=== PATIENT | male | born 1950 | race Caucasian/White ===

== ENCOUNTER 2020-01-15 15:20 | Inpatient (IN) | payer BC, OTHER ==
[~2020-01-15] VITALS: Ht 190.5 cm; Wt 128.8 kg
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
--- NOTE | ~2020-01-15 | EKG ---
[facility] [place] [address] ELECTROCARDIOGRAM REPORT Name: JEWELS ROWELL III Room #: 170-10 ADM IN M.R.#: [id number] Admission: 01/15/20 Attend Phys: Vinny Roche MD, Discharge: Date of : 54 Report #: [id number] THIS REPORT FOR: cc: FAM - No family physician/PCP FAM - No family physician/PCP Dmitri Rizvi MD ~ THIS REPORT FOR: //name// [facility] ED Test Date: 2020-01-15 Test Time: 15:22:19 Pat Name: JEWELS ROWELL Department: Room: 170 Gender: M [place] In: . : 1950 Requested By: Octavio Lindsey Order Number: [id number] MD: Measurements Intervals [place] Rate: 63 P: 44 FL: 187 QRS: -18 QRSD: 105 T: 34 QT: 422 QTc: 433 Interpretive Statements Sinus rhythm Atrial premature complex Borderline left axis deviation Borderline low voltage, extremity leads Abnormal R-wave progression, early transition Compared to ECG 11/06/2006 08:14:38 Atrial premature complex(es) now present Sinus bradycardia no longer present [email or web address] By: 1522 21 [place], [place] /PRINCESS
--- NOTE | ~2020-01-15 | EKG ---
[facility] [place] [address] ELECTROCARDIOGRAM REPORT Name: LELIA,JEWELS Fay III Room #: 215-P DIS IN M.R.#: [id number] Admission: 01/15/20 Attend Phys: Vinny Roche MD, Discharge: 01/16/20 Date of : 54 Report #: [id number] THIS REPORT FOR: cc: BALJEET - No family physician/PCP FAM - No family physician/PCP Dmitri Rizvi MD ~ THIS REPORT FOR: //name// [facility] Test Date: 2020-01-16 Test Time: 06:57:43 Pat Name: JEWELS ROWELL Department: Room: 215 P Gender: M Guest Services Coordinator: Ruby TOWNSEND : 1950 Requested By: Vinny Roche Order Number: [id number] MD: Measurements Intervals [place] Rate: 52 P: [place]: QRS: -10 QRSD: 97 T: 32 QT: 432 QTc: 402 Interpretive Statements Atrial fibrillation Low voltage, extremity and precordial leads Abnormal R-wave progression, early transition Compared to ECG 11/06/2006 08:14:38 Sinus bradycardia no longer present [email or web address] By: 0657 6 [place], [place] /EPI
--- NOTE | ~2020-01-15 | EKG ---
[facility] [place] [address] ELECTROCARDIOGRAM REPORT Name: JEWELS ROWELL III Room #: 215-P ADM IN M.R.#: [id number] Admission: 01/15/20 Attend Phys: Vinny Roche MD, Discharge: Date of : 54 Report #: [id number] THIS REPORT FOR: cc: FAM - No family physician/PCP FAM - No family physician/PCP Dmitri Rizvi MD ~ THIS REPORT FOR: //name// [facility] Test Date: 2020-01-16 Test Time: 06:57:43 Pat Name: JEWELS ROWELL Department: Room: 215 P Gender: M Pit Hand: Ruby TOWNSEND : 1950 Requested By: Haven Boone Order Number: [id number] MD: Measurements Intervals [place] Rate: 52 P: [place]: QRS: -10 QRSD: 97 T: 32 QT: 432 QTc: 402 Interpretive Statements Atrial fibrillation Low voltage, extremity and precordial leads Abnormal R-wave progression, early transition Compared to ECG 11/06/2006 08:14:38 Sinus bradycardia no longer present [email or web address] By: 0657 06 [place], [place] /EPI
[2020-01-15 16:08] LABS: ABSOLUTE NEUTROPHILS 4.3 thou/uL (1.4-8.2); BASOPHILS 0.8 % (0.0-2.0); EOSINOPHILS 1.1 % (0.0-3.0); MCH 31.7 pg (26.0-34.0); MCHC 34.9 g/dL (28.0-37.0); MONOCYTES 8.7 % (1.0-8.0); PLATELET COUNT 225 thou/uL (150-400); POLYS 66.4 % (36.0-66.0); RBC 4.72 mil/uL (4.50-6.00); WBC 6.5 thou/uL (4.0-11.0)
[2020-01-15 16:16] LABS: ANION GAP 8 mmol/L (7-16); BUN 22 mg/dL (7-18); CALCIUM 9.1 mg/dL (8.5-10.1); CHLORIDE 103 mmol/L (98-107); CO2 24 mmol/L (21-32); CREATININE 1.2 mg/dL (0.7-1.3); GLUCOSE 115 mg/dL (74-106); SODIUM 135 mmol/L (136-145)
[2020-01-15 16:25] LABS: ALBUMIN 3.8 g/dL (3.4-5.0); SGOT 41 U/L (15-37); SGPT 55 U/L (30-65); TOTAL BILIRUBIN 0.7 mg/dL (0.2-1.0); TOTAL PROTEIN 7.6 g/dL (6.4-8.2); TROPONIN-I <0.06 ng/mL (<0.06)
[2020-01-15] MEDS ORDERED: BYSTOLIC10 MG PO (16:33)
[2020-01-15] MEDS ORDERED: PROTONIX40 M3 PO (16:36)
[2020-01-15] MEDS ORDERED: EPLERENONE25 MG PO (16:37)
[2020-01-15] MEDS ORDERED: OLMESARTAN MEDO20 MG PO (16:37)
[2020-01-15] MEDS ORDERED: OMEGA 3 1,0001 EACH PO (16:37)
[2020-01-15] MEDS ORDERED: EFFIENT10 MG PO (16:51)
[2020-01-15] MEDS ORDERED: ASA81BEC PO (16:52)
[2020-01-15] MEDS ORDERED: ATORVASTATIN CA80 MG PO (16:52)
[2020-01-15 19:49] VITALS: BP 119/67
[2020-01-15 20:20] VITALS: BP 118/72
[2020-01-16] VITALS (11 sets, daily range): BP systolic 118–137; BP diastolic 67–83
--- NOTE | 2020-01-16 05:28 | NUR ---
PT NEW ADMIT YESTERDAY FROM ED WITH CHEST PAIN. ARRIVED ON UNIT AROUND 1999 WITH NO SIGNS OF CP. VITALS STABLE. PT ALERT AND ORIENTED. DENIES SOB. ALL ADMISSION COMPLETE. CONSENTS SIGNS. PT ORIENTED TO ROOM AND CALL LIGHT SYSTEM . PT WAS NPO SINCE MIDNIGHT CARDIAC CATH THIS MORNING. CONSENT SIGNED AND ON PATIENTS CHART. WILL CONTINUE TO FOLLOW POC.
[2020-01-16 06:56] LABS: HEMOGLOBIN 15.3 gm/dL (14.0-18.0); MCH 31.4 pg (26.0-34.0); MCHC 33.9 g/dL (28.0-37.0); MCV 92.4 fL (80.0-100.0); RBC 4.87 mil/uL (4.50-6.00); RDW 14.3 % (10.5-14.5); WBC 7.4 thou/uL (4.0-11.0)
[2020-01-16 07:17] LABS: CALCIUM 9.1 mg/dL (8.5-10.1); CREATININE 1.4 mg/dL (0.7-1.3); POTASSIUM 4.1 mmol/L (3.5-5.1)
--- NOTE | 2020-01-16 11:56 | NUR ---
chart review. report from bedside nurse, going for cath today. rosa elena spoke with jesse via phone call. intro to cm and dcp. he reported " live in home, with , independent. no dme. no hh or rehab in past. manage own medication and drives vehicle. primary dr trinh at [facility]"/jesse. will cont following as needed for dc needs. no anticipated needs.
[2020-01-16] MEDS ORDERED: EFFIENT10 MG PO (12:21)
--- NOTE | 2020-01-16 14:20 | NUR ---
ASSUMED CARE AT CHANGE OF SHIFT. PT ALERT X4, DENIES SOB, DENIES CHEST PAIN, HEADACHE RELATED TO NOT HAVING MORNING COFFEE, CARDIAC CATH THIS MORNING WITHOUT INTERVENTIONS. RIGHT GROIN SIGHT REMAINED C/D/I WITH RIGHT LEG IMMOBILIZED PER ORDERS. DR BARRERA ORDERS FOR DC WITH SELF CARE POST CARDIAC PORCEDURE. EDUCATED PT ON POST CATH GROIN SIGHT CARE. REVIEWED DC PAPERWORK, IV AND TELE. REMOVED.
--- NOTE | 2020-01-16 17:20 | CATHLAB ---
[facility] [place] [address] INVASIVE PROCEDURE REPORT Name: JEWELS ROWELL [facility] Room #: 215-P [facility] IN M.R.#: [id number] Admission: 01/15/20 Attend Phys: Vinny Roche MD, Discharge: 01/16/20 Date of : 54 Report #: [id number] THIS REPORT FOR: cc: BALJEET - No family physician/PCP FAM - No family physician/PCP Vinny Roche MD [facility] ~ APPROVED REPORT Study performed: 01/16/2020 09:14:30 Patient Details Patient Status: In-Patient Room #: The patient is a 69 year-old male Event Personnel Vinny Roche Farm Contractor, Anabel Atwood RN RN, Kevan Ni RN RN, Adriane Hodgson Monitor, Trinh Rogers RTR, NNEKA Stewart, Cosme Nathan RTR Monitor Procedures Performed Art Access - R femoral artery* Left Heart Cath w/or w/o Coronaries 2216122 [facility] Renal Bilateral Peripheral Angiography 6474357 CVRENALBIL 46541 Initial Mod Sed Same Phys/QHP Gr5y 525128 43423 Mod Sed Same Phys/QHP Ea 717862 Hemostasis w/ Mynx Indication Chest pain Procedure Narrative The Right Groin^ was infiltrated with 1% Lidocaine subcutaneous anesthesia. A PINNACLE 6FR Sheath #[id number] sheath was inserted into the RFA^. Coronary angiography was performed using coronary diagnostic catheters. The right coronary system was accessed and visualized with a JR4 catheter. The left coronary system was accessed and visualized with a JL4 catheter. The left ventricle was accessed and visualized with a PIGTAIL catheter. Left ventriculogram was performed in 30 degree projection. Pre-demployment femoral angiogram was performed . Closure device was deployed with a 6 Fr MYNXGRIP 6/7F #[id number]. The patient tolerated the procedure well and there were no complications associated with the procedure. There was no hematoma. Intraoperative Conscious Sedation Sedation start time: 942 Case end Time: 1042 [facility] [address] [place] [address] INVASIVE PROCEDURE REPORT Name: NATALIA ROWELLTalia aFy [facility] Room #: 215-[facility]#: [id number] Admission: 01/15/20 Attend Phys: Vinny Roche, Discharge: 01/16/20 Date of : 54 Report #: [id number] Fentanyl 50 mcg Versed 1 mg Fluoro Time: 2.13 minutes Dose: DAP 4653.50 cGycm2 556 mGy Contrast Type and Amount: Visipaque 75 ml Hemodynamics The aortic pressure is 140/79 mmHg with a mean of 102 mmHg. The left ventricular pressure is 134/8 mmHg with a mean of mmHg. The left ventricular end diastolic pressure is 29 mmHg. Conclusion 1. Normal left ventricular size systolic function lower limits of normal EF 50% range. #2 left main mildly calcified moderate size giving rise to LAD and circumflex. #3 LAD previously placed stents LAD diagonal bifurcation appear to be patent with mild in-stent restenosis. Brisk flow around the apex. Diffusely diseased #4 circumflex OM with an eccentric 50 to 60% proximal lesion this may be in-stent restenosis has not progressed since the catheterization a year ago no indication for intervention. #5 dominant right coronary artery peers to be vessel of prior rota stent procedure from a year ago. Mild in-stent restenosis. Eccentric 3040% proximal in-stent lesion distal 30 to 40% small but patent PDA BRAYDEN. #6 selective injection of bilateral renal arteries have mild atherosclerosis involving the ostium bilaterally this is not occlusive. Recommendations and plan: Continue aggressive risk factor modification no indication for coronary intervention. Follow discharge protocol. <ELECTRONICALLY SIGNED> By: Vinny Roche MD, FACC 01/16/20 1718 17 171 Vinny Roche MD, FACC /INF
== END 2020-01-16 14:44 | disposition home or self-care (01) | DRG 287 ==
LOC: ER 15:20 → EROBS 17:14 → 2N 17:14
PROVIDERS: Emergency Medicine; Nurse Practitioner Adult Health; ADMIT Internal Medicine Cardiovascular Disease
PROC: 4A023N7 Measurement of Cardiac Sampling and Pressure, Left Heart, Percutaneous Approach (ICD-10-PCS; principal; 2020-01-16)
PROC: B41FYZZ Fluoroscopy of Right Lower Extremity Arteries using Other Contrast (ICD-10-PCS; principal; 2020-01-16)
PROC: B211YZZ Fluoroscopy of Multiple Coronary Arteries using Other Contrast (ICD-10-PCS; principal; 2020-01-16)
PROC: B215YZZ Fluoroscopy of Left Heart using Other Contrast (ICD-10-PCS; principal; 2020-01-16)
DX: I25.119 Atherosclerotic heart disease of native coronary artery with unspecified angina pectoris (principal); I10 Essential (primary) hypertension; E78.5 Hyperlipidemia, unspecified; F12.90 Cannabis use, unspecified, uncomplicated; E78.00 Pure hypercholesterolemia, unspecified; I65.29 Occlusion and stenosis of unspecified carotid artery; M19.90 Unspecified osteoarthritis, unspecified site; Z82.49 Family history of ischemic heart disease and other diseases of the circulatory system; Z95.5 Presence of coronary angioplasty implant and graft; Z88.6 Allergy status to analgesic agent; Z88.8 Allergy status to other drugs, medicaments and biological substances; I25.2 Old myocardial infarction; Z79.82 Long term (current) use of aspirin; Z79.899 Other long term (current) drug therapy
CPT/HCPCS: 10081

== ENCOUNTER → 2021-06-08 | Outpatient (CLI) | payer BC, OTHER ==
[~2021-06-08] MED LIST: ASA81BEC PO; ATORVASTATIN CA80 MG PO; BYSTOLIC10 MG PO; EFFIENT10 MG PO; EPLERENONE25 MG PO; OLMESARTAN MEDO20 MG PO; OMEGA 3 1,0001 EACH PO; PROTONIX40 M3 PO
== END ==
LOC: SJCVCIMAG 05-25 08:25
PROVIDERS: ATTEND Internal Medicine Cardiovascular Disease
DX: I08.1 Rheumatic disorders of both mitral and tricuspid valves (principal); R00.1 Bradycardia, unspecified; I25.119 Atherosclerotic heart disease of native coronary artery with unspecified angina pectoris; I11.0 Hypertensive heart disease with heart failure; I50.9 Heart failure, unspecified; I25.10 Atherosclerotic heart disease of native coronary artery without angina pectoris; E78.00 Pure hypercholesterolemia, unspecified; Z79.82 Long term (current) use of aspirin; Z79.899 Other long term (current) drug therapy; Z72.89 Other problems related to lifestyle; Z87.891 Personal history of nicotine dependence

== ENCOUNTER → 2021-06-15 | Outpatient (CLI) | payer BC, OTHER ==
[~2021-06-15] VITALS: Ht 190.5 cm; Wt 122.9 kg
[~2021-06-15] MED LIST changes: +CIALIS5 MG PO; +[UNRECOGNIZED DRUG - OTHER] PO
[2021-06-15 07:13] VITALS: BP 110/62
[2021-06-15 07:36] LABS: ABSOLUTE NEUTROPHILS 4.6 thou/uL (1.4-8.2); BASOPHILS 0.7 % (0.0-2.0); EOSINOPHILS 1.4 % (0.0-3.0); HEMATOCRIT 41.2 % (42.0-52.0); HEMOGLOBIN 13.7 gm/dL (14.0-18.0); MCH 30.9 pg (26.0-34.0); MCHC 33.4 g/dL (28.0-37.0); MCV 92.6 fL (80.0-100.0); MONOCYTES 10.1 % (1.0-8.0); PLATELET COUNT 223 thou/uL (150-400); POLYS 68.8 % (36.0-66.0); RBC 4.44 mil/uL (4.50-6.00); RDW 13.7 % (10.5-14.5); WBC 6.7 thou/uL (4.0-11.0)
[2021-06-15 07:51] LABS: ANION GAP < 0 mmol/L (7-16); BUN 22 mg/dL (7-18); CALCIUM 9.3 mg/dL (8.5-10.1); CHLORIDE 106 mmol/L (98-107); CO2 33 mmol/L (21-32); CREATININE 0.9 mg/dL (0.7-1.3); GLUCOSE 97 mg/dL (74-106); POTASSIUM 4.1 mmol/L (3.5-5.1); SODIUM 138 mmol/L (136-145)
--- NOTE | 2021-06-15 08:35 | EKG ---
[place] [address] [place] [address] ELECTROCARDIOGRAM REPORT Name: JEWELS ROWELL III Room #: [facility]#: [id number] Admission: 06/15/21 Attend Phys: Vinny Roche MD, Discharge: Date of : 54 Report #: [id number] [facility] Test Date: 2021-06-15 Test Time: 07:24:01 Pat Name: JEWELS ROWELL Department: Room: Gender: Writer: [facility] : 1950 Requested By: Vinny Roche Order Number: [id number] MD: Amando Cruz Measurements Intervals [place] Rate: 56 P: 47 HI: 214 QRS: -21 QRSD: 100 T: 26 QT: 422 QTc: 408 Interpretive Statements Sinus bradycardia Borderline prolonged HI interval Abnormal R-wave progression, early transition Compared to ECG 01/16/2020 06:57:43 Sinus bradycardia no longer present Electronically Signed On 06-15-2021 8:35:32 CDT by Amando Cruz [email or web address] <ELECTRONICALLY SIGNED> By: Amando Cruz MD, [facility] 06/15/21 0835 3 3 Amando Cruz MD, [facility] /EPI
--- NOTE | 2021-06-20 14:59 | CATHLAB ---
[facility] [place] [address] INVASIVE PROCEDURE REPORT Name: LELIAJEWELS III Room #: KOBY [facility]#: [id number] Admission: 06/15/21 Attend Phys: Vinny Roche MD, Discharge: Date of : 54 Report #: [id number] THIS REPORT FOR: cc: Apolinar Parikh John E. DO Mancuso, Gerald M. MD [facility] ~ APPROVED REPORT Study performed: 06/15/2021 07:28:50 Patient Details Patient Status: Out-Patient Room #: The patient is a 71 year-old male Event Personnel Vinny Roche Transfer Iron Operator, Alethea Colvin RTR Monitor, Trinh Rogers RTR, Last Arreola Dexter RN animal nurse Performed Art Access - R femoral artery* Left Heart Cath w/or w/o Coronaries [id number] [facility] PTCA Single Vessel RCA 4204620 [facility] FFR 9530902 FFR Hemostasis w/ Mynx 77581 Initial Mod Sed Same Phys/QHP Gr5y 754468 90084 Mod Sed Same Phys/QHP Ea 357128 Procedure Narrative The Right Groin^ was infiltrated with 1% Lidocaine subcutaneous anesthesia. A PINNACLE 6FR Sheath #[id number] sheath was inserted into the RFA^. Coronary angiography was performed using coronary diagnostic catheters. The right coronary system was accessed and visualized with a JR4 catheter. The left coronary system was accessed and visualized with a JL4 catheter. The left ventricle was accessed and visualized with a PIGTAIL catheter. Left ventriculogram was performed in 30 degree projection. Closure device was deployed with a Fr MYNXGRIP 6/7F #[id number]. The patient tolerated the procedure well and there were no complications associated with the procedure. There was no hematoma. Intraoperative Conscious Sedation Sedation start time: 9:07 Case end Time: 10:09 Fentanyl 100 mcg Versed 2 mg Fluoro Time: 5.00 minutes [facility] [address] [place] [address] INVASIVE PROCEDURE REPORT Name: JEWELS ROWELL III Room #: [facility]#: [id number] Admission: 06/15/21 Attend Phys: Vinny Roche, Discharge: Date of : 54 Report #: [id number] Dose: DAP 7386.80 cGycm2 908 mGy Contrast Type and Amount: Omnipaque 140 ml Hemodynamics The aortic pressure is 108/59 mmHg with a mean of 78 mmHg. The left ventricular pressure is 120/8 mmHg with a mean of mmHg. The left ventricular end diastolic pressure is 23 mmHg. PCI Technique Lesion Percutaneous coronary intervention was performed on the mid right coronary artery. A LAUNCHER 6FR JR 4 #[id number] Guide Catheter was used to engage the ostium. A Luge Wire .014 x 182CM #[id number] Interventional Guidewire was used to cross the lesion. BALLOON DILATION A Balloon catheter TREK NC OTW 3.5 X 12 #[id number] was inserted and inflated up to 18.00atm for 29seconds. Additional Inflation: 20.00atm for 19seconds. Conclusion #1 Normal left ventricular size with subtle inferior basilar hypokinesis EF 50% range #2 Successful PTCA of in-stent restenosis focally 90% to 0% with placement of a 3.5 noncompliant balloon postdilated 3.7 mm LILLI grade III flow. This is a previously stented nearly full metal jacket. #3 left main is calcified mildly diseased distally giving rise to LAD and circumflex. #4 LAD with an eccentric proximal lesion of 50% with mild distal disease. #5 nondominant circumflex is moderate in size there is an eccentric 50 to 60% proximal lesion which remained stable from the prior exam. Moderate distribution. Recommendations and plan: Continue aggressive risk factor modification. Dual antiplatelet therapy will be initiated. Will consider discharge later today. <ELECTRONICALLY SIGNED> By: Vinny Roche MD, FACC 06/20/21 1459 145 145 Vinny Roche MD, FACC /INF
== END | disposition home or self-care (01) ==
LOC: CATH 06:28
PROVIDERS: ATTEND Internal Medicine Cardiovascular Disease
DX: R94.39 Abnormal result of other cardiovascular function study (principal); I25.10 Atherosclerotic heart disease of native coronary artery without angina pectoris; T82.855A Stenosis of coronary artery stent, initial encounter; I25.2 Old myocardial infarction; I10 Essential (primary) hypertension; E78.00 Pure hypercholesterolemia, unspecified; K21.9 Gastro-esophageal reflux disease without esophagitis; E66.9 Obesity, unspecified; Z98.890 Other specified postprocedural states; Z79.899 Other long term (current) drug therapy; Z87.891 Personal history of nicotine dependence; Z88.8 Allergy status to other drugs, medicaments and biological substances; Y83.8 Other surgical procedures as the cause of abnormal reaction of the patient, or of later complication, without mention of misadventure at the time of the procedure

== ENCOUNTER → 2021-06-29 | Outpatient (CLI) | payer BC, OTHER | LOC: SJCVC 09:58 | PROVIDERS: ATTEND Internal Medicine Cardiovascular Disease | DX: R94.31 Abnormal electrocardiogram [ECG] [EKG] (principal); I11.0 Hypertensive heart disease with heart failure; I50.41 Acute combined systolic (congestive) and diastolic (congestive) heart failure; I25.119 Atherosclerotic heart disease of native coronary artery with unspecified angina pectoris; E78.00 Pure hypercholesterolemia, unspecified; I65.23 Occlusion and stenosis of bilateral carotid arteries; Z80.49 Family history of malignant neoplasm of other genital organs; F17.210 Nicotine dependence, cigarettes, uncomplicated; Z72.89 Other problems related to lifestyle; Z79.82 Long term (current) use of aspirin; Z79.899 Other long term (current) drug therapy ==